=== PATIENT | female | born 1995 ===

== ENCOUNTER 2017-03-09 10:56 | Emergency (ER) | payer OTHER ==
--- NOTE | 2017-03-09 12:23 | UC ---
[place], DoctorShona, scribed for Evans Fritz MD on 03/09/17 at 1148 . Throat Pain/Nasal [place] HPI - HPI Summary HPI Summary: 21 year old [place] [facility] [place] throat and cold symptoms beginning 2-3 days ago. She reports throat pain (rated 7/10) that is exacerbated while swallowing, as well as a stuffy nose, congestion, swollen tonsils, and a headache. He reports taking OTC Medications since 02/22/17, when she was dx with mononucleosis. Additionally, she had a fever after her dx which has since resolved. She is a student at [employer] and denies any other pertinent PMHx. - History of Current Complaint Chief Complaint: UCRespiratory Stated Complaint: SORE THROAT/MONO Time Seen by Provider: 03/09/17 11:28 Hx Obtained From: Patient Hx Last Menstrual Period: Dec 2015 Onset/Duration: Lasting Days, Still Present Severity: Moderate Pain Intensity: 7 Pain Scale Used: 0-10 Numeric Associated Signs & Symptoms: Positive: Sinus Discomfort, Nasal Discharge, Fever - present 1+ week ago, now resolved, Other - headache, throat pain Related History: Other (Noted In Comments) - recent dx with mononucleosis (10 days ago) - Allergies/Home Medications Allergies/Adverse Reactions: Allergies Allergy/AdvReac Type Severity Reaction Status Date / Time Cefprozil [From Cefzil] Allergy Rash Verified 03/09/17 11:31 Penicillins Allergy Unknown Verified 03/09/17 11:32 Reaction Details Home Medications: Home Medications Ibuprofen TAB* [Advil TAB*] 03/09/17 [History] PMH/Surg Hx/FS Hx/Imm Hx Endocrine History Of: Denies: Diabetes - Surgical History Surgical History: None - Family History Known Family History: Negative: Cardiac Disease, Diabetes - Social History Occupation: Student Alcohol Use: Occasionally Substance Use Type: None Smoking Status (MU): Never Smoked Tobacco Review of Systems Constitutional: Fever - fever reported 1 week ago, since resolved ENT: Sore Throat, Nasal Discharge, Other - pain when swallowing Neurological: Headache All Other Systems Reviewed And Are Negative: Yes Physical Exam Triage Information Reviewed: Yes Appearance: Well-Appearing, No Pain Distress Vital Signs: Initial Vital Signs Temp 98.0 F 03/09/17 11:28 Pulse 93 03/09/17 11:28 Resp 18 03/09/17 11:28 BP 107/59 03/09/17 11:28 Pulse Ox 98 03/09/17 11:28 Vital Signs Reviewed: Yes Eyes: Positive: Conjunctiva Clear ENT: Positive: Nasal congestion - mild rhinorrhea, Tonsillar swelling - 2+ tonsillar swelling, Tonsillar exudate, Other: - anterior cervical lymphadenopathy Neck: Positive: Supple, Nontender Respiratory: Positive: Lungs clear, Normal breath sounds Cardiovascular: Positive: RRR Abdomen Description: Positive: Nontender, Soft Musculoskeletal: Positive: Strength Intact, ROM Intact Neurological: Positive: Muscle Tone Normal Psychological Exam: Normal Skin Exam: Normal Re-Evaluation - Re-Evaluation First Eval Re-Evaluation Time: 12:09 Change: Unchanged Throat Pain/Nasal Course/Dx - Course Assessment/Plan: WELL IN ED. DISCUSSED RESULTS WITH PATIENT. NO DIFFICULTY WITH AIRWAY. WITH RAPID STREP NEGATIVE, NO ABX RX AT THIS TIME. F/U [facility]; TO ED IF WORSE. STABLE IN CLINIC. - Differential Dx/Diagnosis Provider Diagnoses: PHARYNGITIS IN A PATIENT WITH KNOWN MONO Discharge - Discharge Plan Condition: Stable Disposition: HOME Patient Education Materials: Pharyngitis (ED) Referrals: Non Staff,Doctor [Primary Care Provider] - Additional Instructions: FOLLOW UP WITH YOUR DOCTOR/[facility]. RETURN TO THE EMERGENCY DEPARTMENT FOR ANY WORSENING OF YOUR CONDITION; DIFFICULTY BREATHING OR SWALLOWING, YOU FEEL ILL OR QUESTIONS OR CONCERNS. The documentation as recorded by the Doctor pierce Tahera accurately reflects the service I personally performed and the decisions made by me, Evans Fritz MD.
== END 2017-03-09 12:23 | disposition home or self-care (01) ==
LOC: UCEAST 10:56
DX: J02.9 Acute pharyngitis, unspecified (principal); B27.90 Infectious mononucleosis, unspecified without complication; Z88.0 Allergy status to penicillin
CPT/HCPCS: 87651; 99201; G0463